=== PATIENT | female | born 1980 | race Two or more races ===

== ENCOUNTER 2023-07-08 11:27 | Emergency (ER) | payer BC ==
[2023-07-08] MEDS ORDERED: Dexamethasone 4 MG TAB ONE (12:20)
[2023-07-08] MEDS ORDERED: Azithromycin 250 MG TAB ONE (12:20)
== END 2023-07-08 12:25 | disposition home or self-care (01) ==
LOC: BURERS 11:27
DX: J02.0 Streptococcal pharyngitis (principal)
CPT/HCPCS: 87081; 87430; 99283; J8540

== ENCOUNTER 2025-04-20 16:12 | Emergency (ER) | payer BC ==
[2025-04-20] MEDS ORDERED: Acetaminophen 500 MG TAB ONE (16:49)
[2025-04-20] MEDS ORDERED: Azithromycin 250 MG TAB ONE (17:24)
== END 2025-04-20 17:30 | disposition home or self-care (01) ==
LOC: BURERS 16:12
DX: J18.9 Pneumonia, unspecified organism (principal); J45.901 Unspecified asthma with (acute) exacerbation; I10 Essential (primary) hypertension; Z79.899 Other long term (current) drug therapy
CPT/HCPCS: 71046; 87428; 94640